=== PATIENT | female | born 1940 | race African-American/Black ===

== ENCOUNTER → 2017-01-26 | Outpatient (CLI) | payer MEDICARE, OTHER ==
[~2017-01-26] MED LIST: AMLODIPINE BESYL5 MG PO; AMOXICILLIN875 MG PO; ASPIRIN81 M2 PO; CLARITIN10 M2 PO; CLARITIN10 M3 DOB; CRESTOR10 MG PO; DULCOLAX10 MG/SUPP RC; FAST RELIEF LAX10 MG RC; FLOMAX0.4 M1 DOB; HCTZ PO; HUMALOG100 U/M2 SUBQ; HUMALOG100 U/ML SQ; LANTUS100 U/ML SQ; LANTUS100 U/ML SUBQ; LEVAQUIN750 MG PO; LORTAB 10-5001 EACH PO; LORTAB 5/500 TA1 TA1 PO; LORTAB 7.51 TAB PO; LOSARTAN-HCTZ1 EAC1 PO; LOSARTAN-HCTZ1 EAC3 PO; NAPROSYN500 MG PO; OMEPRAZOLE20 M1 PO; ONGLYZA5 MG PO; PHENERGAN25 M1 PO; PLETAL100 M1 PO; PREDNISONE PO; PRILOSEC20 MG PO; REMERON15 MG PO; SERTRALINE HCL100 MG PO; SPIRIVA18 MCG INH; SYMBICORT INH; TRADJENTA5 MG PO
--- NOTE | ~2017-01-26 | CT57 ---
[facility] A Service of [facility] RADIOLOGY TEXT RESULTS PATIENT: YU MONTALVO LOCATION: [facility]AT : 38 UNIT #: [id number] AGE: [address]: Cortez Guerrero MD SEX: F ORDER DR: [id number] [facility] [address] [place], [place] [address] [id number] O MR#: [id number] Acc #: [id number] NAME: YU MONTALVO : 1940 SEX: F STUDY DATE/TIME: 01/26/2017 15:53 UNIT: [facility]AT ROOM: STUDY DESCRIPTION: CT Chest Wo Cont Attending Physician: Cortez Guerrero M.D. Referring Physician: Cortez Guerrero M.D. Ordering Physician: Cortez Guerrero M.D. Primary Care Physician: Cortez Guerrero M.D. MEDICAL IMAGING REPORT This report is preliminary unless electronic signature is present EXAMINATION CT chest without contrast. DATE 01/26/2017 HISTORY COPD. Cough. History of tobacco use. Patient states cough for 1 year. Requires oxygen supplementation at night. Additional history of hypertension, diabetes and cardiac disease. COMPARISON CT chest 09/24/2013. PA and lateral chest 07/22/2015. PROCEDURE 5 mm axial images through the chest without contrast. Sagittal and coronal reformatted images were obtained. FINDINGS Severe emphysematous changes are present. A noncalcified nodule within this appears segment left lower lobe measures 5 mm (series 4, image 20), which is a new finding since 09/24/2013. Additionally, there is a tubular shaped density along a bronchiolar distribution in the right lower lobe measuring 1.9 x 0.9 cm, favored to represent mucoid impaction within a bronchiole. A 4 mm noncalcified nodule is demonstrated within the right lower lobe medially (series 4, image 52). Dense calcific atherosclerosis is demonstrated within the thoracic aorta, greatest in the transverse segment. Dense coronary artery calcifications are present. Caliber of the thoracic aorta is within normal limits. 1.3 cm short axis precarinal lymph node is a stable finding since 2013 in keeping with benign finding. Heterogeneity within the thyroid gland without discrete nodularity. Cholecystectomy. Dense calcification in the STS. [facility] A Service of [facility] RADIOLOGY TEXT RESULTS PATIENT: YU MONTALVO [facility] UNIT #: [id number] AGE: [address]: Cortez Guerrero MD SEX: F ORDER DR: proximal SMA. Remainder of the included upper abdominal organs have a normal noncontrast appearance. No acute osseous abnormalities are identified. IMPRESSION 1. New right lower lobe tubular shaped opacity, strongly favored to represent a benign etiology such as mucoid impaction within the distal bronchiole or small airways infectious-inflammatory process. As malignancy cannot be completely excluded, recommend short-term CT chest follow up within 3 to 4 months to document improvement or resolution. Additionally, 4 mm right lower lobe and 5 mm left upper lobe noncalcified pulmonary nodules can undergo surveillance imaging at that time, as well. The aforementioned nodules are new findings compared to 09/24/2013. 2. Severe emphysema. 3. Dense coronary artery calcifications. Please correlate with cardiac history. 4. Cholecystectomy. Dictated by... Fatuma Moore M.D. THIS IS AN ELECTRONICALLY VERIFIED REPORT Fatuma Moore M.D. at 01/28/2017 8:43 AM ATIF/riky TD: 01/27/2017 23:50 JOB #: [id number] MEDICAL IMAGING REPORT Page 1 of 1 COPY
== END | disposition home or self-care (01) ==
LOC: CCAT 01-17 14:20
DX: J44.9 Chronic obstructive pulmonary disease, unspecified (principal); R63.4 Abnormal weight loss; J43.9 Emphysema, unspecified; R91.8 Other nonspecific abnormal finding of lung field; I25.10 Atherosclerotic heart disease of native coronary artery without angina pectoris; Z90.49 Acquired absence of other specified parts of digestive tract; Z72.0 Tobacco use
CPT/HCPCS: 71250